=== PATIENT | female | born 2000 | race American Indian/Alaskan Native ===

== ENCOUNTER 2020-05-14 18:42 | Emergency (ER) | payer MEDICAID ==
[2020-05-14 19:33] VITALS: BP 111/60
[2020-05-14 20:10] LABS: Basophils % (Auto) 0.4 % (0.0-1.8); Eosinophils # (Auto) 0.2 K/mm3 (0.0-0.4); Eosinophils % (Auto) 3.9 % (0.0-4.3); Hemoglobin 13.9 gm/dl (10.1-14.3); Lymphocytes # (Auto) 1.9 K/mm3 (1.2-5.4); Lymphocytes % (Auto) 39.4 % (13.4-35.0); Mean Corpuscular HGB Conc 33 % (30-34); Mean Corpuscular Volume 89 fl (79-97); Monocytes # (Auto) 0.4 K/mm3 (0.0-0.8); Monocytes % (Auto) 7.4 % (0.0-7.3); Platelet Count 264 K/mm3 (140-440); Red Blood Count 4.75 M/mm3 (3.65-5.03); Red Cell Distribution Width 13.9 % (13.2-15.2)
[2020-05-14 20:24] LABS: Blood Urea Nitrogen 13 mg/dL (7-17); Calcium 9.2 mg/dL (8.4-10.2); Hemolysis Index 12
[2020-05-14 20:28] LABS: BUN/Creatinine Ratio 19
[2020-05-14 20:39] LABS: Bacteria,Urine 2+ /HPF (Negative); Bilirubin,Urine NEG (Negative); Blood,Urine NEG (Negative); Color,Urine Yellow (Yellow); Mucus,Urine 3+ /HPF; Protein,Urine <15 mg/dL mg/dL (Negative)
--- NOTE | 2020-05-14 21:06 | Emergency Department Report ---
ED General Adult HPI - General Chief complaint: Urogenital-Female Stated complaint: LOW BACK PAIN (POSS PREG) PUI?: No Time Seen by Provider: 05/14/20 20:52 Source: patient Mode of arrival: Ambulatory Limitations: No Limitations - History of Present Illness Initial comments: Ms. Perez is a 20-year-old female with no prior medical history who presents the ED complaining of mid lower back pain for the past couple of weeks. Patient denies any injury or trauma to the back. Patient states that back pain is localized to the mid lower back. Patient denies any radiation elsewhere. Patient also states that she thinks she may be she has not had a menstrual period in 2 years so she is unsure. Patient states that she does have a Nexplanon in her left arm that was placed 2 years ago. Patient also states that she has a history of hemorrhoids that causes her discomfort from time to time. She denies fever/chills/nausea vomiting/vaginal bleed/pelvic pain/dysuria or any other symptoms - Related Data Previous Rx's Medication Instructions Recorded Last Taken Type Docusate Sodium [Colace] 100 mg PO BID PRN #30 capsule 05/14/20 Unknown Rx Hydrocortisone [Anucort-HC SUPPOS] 25 mg RC BID #30 supp.rect 05/14/20 Unknown Rx Allergies Allergy/AdvReac Type Severity Reaction Status Date / Time No Known Allergies Allergy Unverified 05/14/20 19:16 ED Review of Systems ROS: Stated complaint: LOW BACK PAIN (POSS PREG) Other details as noted in HPI Comment: All other systems reviewed and negative ED Past Medical Hx - Past Medical History Previous Medical History?: No Additional medical history: hemorrhoids - Surgical History Past Surgical History?: No - Medications Home Medications: Home Medications Medication Instructions Recorded Confirmed Last Taken Type Docusate Sodium [Colace] 100 mg PO BID PRN #30 capsule 05/14/20 Unknown Rx Hydrocortisone [Anucort-HC SUPPOS] 25 mg RC BID #30 supp.rect 05/14/20 Unknown Rx ED Physical Exam - General Limitations: No Limitations General appearance: alert, in no apparent distress - Head Head exam: Present: atraumatic, normocephalic - Eye Eye exam: Present: normal appearance - ENT ENT exam: Present: mucous membranes moist - Neck Neck exam: Present: normal inspection - Respiratory Respiratory exam: Present: normal lung sounds bilaterally. Absent: respiratory distress - Cardiovascular Cardiovascular Exam: Present: regular rate, normal rhythm. Absent: systolic murmur, diastolic murmur, rubs, gallop - GI/Abdominal GI/Abdominal exam: Present: soft, normal bowel sounds. Absent: distended, tenderness - Extremities Exam Extremities exam: Present: normal inspection, full ROM. Absent: tenderness - Back Exam Back exam: Present: normal inspection, full ROM. Absent: tenderness, CVA te nderness (R), CVA tenderness (L), muscle spasm, paraspinal tenderness - Neurological Exam Neurological exam: Present: alert, oriented X3, normal gait - Psychiatric Psychiatric exam: Present: normal affect, normal mood - Skin Skin exam: Present: warm, dry, intact, normal color. Absent: rash ED Course Vital Signs 05/14/20 05/14/20 19:17 23:42 Temperature 99.6 F Pulse Rate 68 72 Respiratory 16 18 Rate Blood Pressure 111/60 O2 Sat by Pulse 98 97 Oximetry ED Medical Decision Making - Lab Data Result diagrams: 05/14/20 19:54 05/14/20 19:54 Laboratory Last Values WBC 4.9 K/mm3 (4.5-11.0) 05/14/20 19:54 RBC 4.75 M/mm3 (3.65-5.03) 05/14/20 19:54 Hgb 13.9 gm/dl (10.1-14.3) 05/14/20 19:54 Hct 42.0 % (30.3-42.9) 05/14/20 19:54 MCV 89 fl (79-97) 05/14/20 19:54 MCH 29 pg (28-32) 05/14/20 19:54 MCHC 33 % (30-34) 05/14/20 19:54 RDW 13.9 % (13.2-15.2) 05/14/20 19:54 Plt Count 264 K/mm3 (140-440) 05/14/20 19:54 Lymph % (Auto) 39.4 % (13.4-35.0) H 05/14/20 19:54 [place] % (Auto) 7.4 % (0.0-7.3) H 05/14/20 19:54 Eos % (Auto) 3.9 % (0.0-4.3) 05/14/20 19:54 Baso % (Auto) 0.4 % (0.0-1.8) 05/14/20 19:54 Lymph # (Auto) 1.9 K/mm3 (1.2-5.4) 05/14/20 19:54 [place] # (Auto) 0.4 K/mm3 (0.0-0.8) 05/14/20 19:54 Eos # (Auto) 0.2 K/mm3 (0.0-0.4) 05/14/20 19:54 Baso # (Auto) 0.0 K/mm3 (0.0-0.1) 05/14/20 19:54 Seg Neutrophils % 48.9 % (40.0-70.0) 05/14/20 19:54 Seg Neutrophils # 2.4 K/mm3 (1.8-7.7) 05/14/20 19:54 Sodium 138 mmol/L (137-145) 05/14/20 19:54 Potassium 4.1 mmol/L (3.6-5.0) 05/14/20 19:54 Chloride 102.4 mmol/L (98-107) 05/14/20 19:54 Carbon Dioxide 29 mmol/L (22-30) 05/14/20 19:54 Anion Gap 11 mmol/L 05/14/20 19:54 BUN 13 mg/dL (7-17) 05/14/20 19:54 Creatinine 0.7 mg/dL (0.6-1.2) 05/14/20 19:54 Estimated GFR > 60 ml/min 05/14/20 19:54 BUN/Creatinine Ratio 19 % 05/14/20 19:54 Glucose 94 mg/dL (65-100) 05/14/20 19:54 Calcium 9.2 mg/dL (8.4-10.2) 05/14/20 19:54 Urine Color Yellow (Yellow) 05/14/20 Unknown Urine Turbidity Slightly-cloudy (Clear) 05/14/20 Unknown Urine pH 6.0 (5.0-7.0) 05/14/20 Unknown Ur Specific [place] 1.027 (1.003-1.030) 05/14/20 Unknown Urine Protein <15 mg/dl mg/dL (Negative) 05/14/20 Unknown Urine Glucose (UA) Neg mg/dL (Negative) 05/14/20 Unknown Urine Ketones Neg mg/dL (Negative) 05/14/20 Unknown Urine Blood Neg (Negative) 05/14/20 Unknown Urine Nitrite Neg (Negative) 05/14/20 Unknown Urine Bilirubin Neg (Negative) 05/14/20 Unknown Urine Urobilinogen 4.0 mg/dL (<2.0) 05/14/20 Unknown Ur Leukocyte Esterase Neg (Negative) 05/14/20 Unknown Urine WBC (Auto) 2.0 /HPF (0.0-6.0) 05/14/20 Unknown Urine RBC (Auto) 1.0 /HPF (0.0-6.0) 05/14/20 Unknown U Epithel Cells (Auto) 1.0 /HPF (0-13.0) 05/14/20 Unknown Urine Bacteria (Auto) 2+ /HPF (Negative) 05/14/20 Unknown Urine Mucus 3+ /HPF 05/14/20 Unknown Urine HCG, Qual Negative (Negative) 05/14/20 Unknown - Medical Decision Making 20-year-old female presents with hemorrhoids/low back muscle strain All labs are within normal limits no abnormalities seen. Urinalysis negative urine test negative I discussed all findings with the patient. I discussed with patient need to follow-up with her primary care physician. Patient understand instructions and states she will follow-up. Patient had no acute or respiratory distress throughout ED stay. Discussed with patient follow-up with gastroenterology for management of worsening hemorrhoids. Critical care attestation.: If time is entered above; I have spent that time in minutes in the direct care of this critically ill patient, excluding procedure time. ED Disposition Clinical Impression: Hemorrhoids, Strain of muscle, fascia and tendon of lower back, initial encounter Disposition: TO HOME OR SELFCARE Is pt being admited?: No Does the pt Need Aspirin: No Condition: Stable Instructions: Surgical Procedures for Hemorrhoids, Nonsurgical Procedures for Hemorrhoids, Care After, Lumbar Strain Additional Instructions: Make sure to follow up with the primary care physician as discussed. Take all your medications as you've been prescribed. If you have any worsening symptoms or develop new symptoms please return to ED immediately. Prescriptions: Hydrocortisone [Anucort-HC SUPPOS] 25 mg RC BID #30 supp.rect Docusate Sodium [Colace] 100 mg PO BID PRN #30 capsule PRN Reason: Constipation Referrals: [facility] [Provider Group] - 3-5 Days [facility] [Outside] - 3-5 Days [facility] [Outside] - 3-5 Days Forms: Accompanied Note, Work/School Release Form(ED) Time of Disposition: 21:53
[2020-05-14 21:20] LABS: HCG Qualitative,Urine Negative (Negative)
== END 2020-05-14 23:42 | disposition home or self-care (01) ==
LOC: ED 18:42
DX: S39.012A Strain of muscle, fascia and tendon of lower back, initial encounter (principal); K64.9 Unspecified hemorrhoids; Z79.899 Other long term (current) drug therapy; X58.XXXA Exposure to other specified factors, initial encounter; Y93.89 Activity, other specified; Y92.89 Other specified places as the place of occurrence of the external cause; Y99.8 Other external cause status
CPT/HCPCS: 36415; 80048; 81001; 81025; 85025

== ENCOUNTER 2020-10-19 09:51 | Emergency (ER) | payer MEDICAID ==
--- NOTE | 2020-10-19 11:12 | Emergency Department Report ---
ED Female HPI - General Chief complaint: Urogenital-Female Stated complaint: KIDNEY PAINS BACK PAINS Time Seen by Provider: 10/19/20 10:33 Source: patient Mode of arrival: Ambulatory Limitations: No Limitations - History of Present Illness Initial comments: Patient is a 20-year-old female presents emergency room with complaints of a possible UTI. She states that she has had symptoms for a week and reports she has been drinking cranberry juice as she thought that would help her symptoms. She states that she has lower back discomfort, lower abdominal discomfort, urinary frequency, urinary urgency, pressure at the end of urination. She denies any fever, nausea, vomiting, diarrhea, abnormal vaginal discharge. She denies any concerns for STDs. No past medical history. No allergies to medications. She states that she has an Implanon for control - Related Data Previous Rx's Medication Instructions Recorded Last Taken Type Docusate Sodium [Colace] 100 mg PO BID PRN #30 capsule 05/14/20 Unknown Rx Hydrocortisone [Anucort-HC SUPPOS] 25 mg RC BID #30 supp.rect 05/14/20 Unknown Rx cephALEXin [Keflex] 500 mg PO BID 7 Days #14 cap 10/19/20 Unknown Rx Allergies Allergy/AdvReac Type Severity Reaction Status Date / Time No Known Allergies Allergy Verified 10/19/20 10:04 ED Review of Systems ROS: Stated complaint: KIDNEY PAINS BACK PAINS Other details as noted in HPI Comment: All other systems reviewed and negative ED Past Medical Hx - Past Medical History Additional medical history: hemorrhoids - Social History Smoking Status: Never Smoker Substance Use Type: None - Medications Home Medications: Home Medications Medication Instructions Recorded Confirmed Last Taken Type Docusate Sodium [Colace] 100 mg PO BID PRN #30 capsule 05/14/20 Unknown Rx Hydrocortisone [Anucort-HC SUPPOS] 25 mg RC BID #30 supp.rect 05/14/20 Unknown Rx cephALEXin [Keflex] 500 mg PO BID 7 Days #14 cap 10/19/20 Unknown Rx ED Physical Exam - General Limitations: No Limitations General appearance: alert, in no apparent distress - Head Head exam: Present: atraumatic, normocephalic - Eye Eye exam: Present: normal appearance - ENT ENT exam: Present: mucous membranes moist - Respiratory Respiratory exam: Present: normal lung sounds bilaterally. Absent: respiratory distress, wheezes, rales, rhonchi, stridor, chest wall tenderness, accessory muscle use, decreased breath sounds, prolonged expiratory - Cardiovascular Cardiovascular Exam: Present: regular rate, normal rhythm, normal heart sounds. Absent: systolic murmur, diastolic murmur, rubs, gallop - GI/Abdominal GI/Abdominal exam: Present: soft, normal bowel sounds. Absent: distended, tenderness, guarding, rebound, rigid - Back Exam Back exam: Absent: CVA tenderness (R), CVA tenderness (L) - Neurological Exam Neurological exam: Present: alert, oriented X3 - Psychiatric Psychiatric exam: Present: normal affect, normal mood - Skin Skin exam: Present: warm, dry, intact ED Course Vital Signs 10/19/20 10/19/20 09:57 11:52 Temperature 99.5 F Pulse Rate 85 78 Respiratory 16 20 Rate Blood Pressure 107/50 Blood Pressure 120/74 [Left] O2 Sat by Pulse 100 100 Oximetry ED Medical Decision Making - Lab Data Lab Results 10/19/20 Range/Units Unknown Urine Color Yellow (Yellow) Urine Turbidity Turbid (Clear) Urine pH 5.0 (5.0-7.0) Ur Specific [place] 1.017 (1.003-1.030) Urine Protein 100 mg/dl (Negative) mg/dL Urine Glucose (UA) Neg (Negative) mg/dL Urine Ketones Neg (Negative) mg/dL Urine Blood Mod (Negative) Urine Nitrite Neg (Negative) Urine Bilirubin Neg (Negative) Urine Urobilinogen < 2.0 (<2.0) mg/dL Ur Leukocyte Esterase Lg (Negative) Urine WBC (Auto) > 182.0 H (0.0-6.0) /HPF Urine RBC (Auto) 61.0 (0.0-6.0) /HPF U Epithel Cells (Auto) 2.0 (0-13.0) /HPF Urine Bacteria (Auto) 2+ (Negative) /HPF Urine Mucus 1+ /HPF Urine HCG, Qual Negative (Negative) - Medical Decision Making Patient is a 20-year-old female presents emergency room with complaints of a possible UTI. She states that she has had symptoms for a week and reports she has been drinking cranberry juice as she thought that would help her symptoms. She states that she has lower back discomfort, lower abdominal discomfort, urinary frequency, urinary urgency, pressure at the end of urination. She denies any fever, nausea, vomiting, diarrhea, abnormal vaginal discharge. She denies any concerns for STDs. No past medical history. No allergies to medications. She states that she has an Implanon for control. Vitals are normal. No abdominal tenderness or CVA tenderness on exam. UA shows evidence of UTI. Patient given prescription for Keflex. Advised patient Please take medication as prescribed to completion. Increase your fluid intake. Follow-up with a primary care doctor and have your urine retested for clearance of bacteria. Return to emergency room for any new or symptoms. Critical care attestation.: If time is entered above; I have spent that time in minutes in the direct care of this critically ill patient, excluding procedure time. ED Disposition Clinical Impression: UTI (urinary tract infection) Qualifiers: Urinary tract infection type: acute cystitis Hematuria presence: with hematuria Qualified Code(s): N30.01 - Acute cystitis with hematuria Disposition: TO HOME OR SELFCARE Is pt being admited?: No Does the pt Need Aspirin: No Condition: Stable Instructions: Urinary Tract Infection, Adult, [id number] Additional Instructions: Please take medication as prescribed to completion. Increase your fluid intake. Follow-up with a primary care doctor and have your urine retested for clearance of bacteria. Return to emergency room for any new or symptoms. Prescriptions: cephALEXin [Keflex] 500 mg PO BID 7 Days #14 cap Referrals: [facility] [Provider Group] - 3-5 Days MACKENZIE NEELY MD [Staff Physician] - 3-5 Days [facility] [Primary Care Provider] - 3-5 Days Time of Disposition: 11:40 Print Language: CYMRAES
[2020-10-19 11:33] LABS: Bacteria,Urine 2+ /HPF (Negative); Bilirubin,Urine NEG (Negative); Blood,Urine MOD (Negative); Color,Urine Yellow (Yellow); Mucus,Urine 1+ /HPF; Urobilinogen,Urine < 2.0 mg/dL (<2.0)
[2020-10-19 11:34] LABS: WBC,Urine > 182.0 /HPF (0.0-6.0)
[2020-10-19 11:35] LABS: HCG Qualitative,Urine Negative (Negative)
[2020-10-19 11:54] VITALS: BP 120/74
== END 2020-10-19 11:54 | disposition home or self-care (01) ==
LOC: ED 09:51
DX: N39.0 Urinary tract infection, site not specified (principal); Z79.899 Other long term (current) drug therapy
CPT/HCPCS: 81001; 81025

== ENCOUNTER 2021-03-18 08:27 | Emergency (ER) | payer MEDICAID ==
[2021-03-18 08:45] VITALS: BP 126/84
[2021-03-18] MEDS ORDERED: ACETAMINOPHEN 500 MG TAB PO ONE (08:50)
--- NOTE | 2021-03-18 09:26 | Emergency Department Report ---
ED Female HPI - General Chief complaint: Vaginal Bleeding Stated complaint: VAGINAL BLEEDING Time Seen by Provider: 03/18/21 08:31 Source: patient Mode of arrival: Ambulatory Limitations: No Limitations - History of Present Illness Initial comments: This is a 21-year-old female nontoxic, well nourished in appearance, no acute signs of distress presents to the ED with c/o of vaginal bleeding and pelvic cramping x 2 weeks. Denies any upper abdomen pains. Patient denies any vaginal discharge or foul odor. Patient denies any nausea, vomiting, chest pain, shortness of breathe, fever, chills, headache, stiff neck, numbness, tingling. Patient denies any urinary symptoms. Patient denies any allergies or PMH. MD Complaint: vaginal bleeding, pelvic pain -: days(s) Radiation: non-radiating Severity: mild Severity scale (0 -10): 3 Quality: cramping Consistency: intermittent Improves with: none Worsens with: none Associated Symptoms: vaginal bleeding. denies: vaginal discharge, abdominal pain, nausea/vomiting, fever/chills, headaches, loss of appetite, dysuria, hematuria, rash, seizure, shortness of breath, syncope, weakness - Related Data Previous Rx's Medication Instructions Recorded Last Taken Type Docusate Sodium [Colace] 100 mg PO BID PRN #30 capsule 05/14/20 Unknown Rx Hydrocortisone [Anucort-HC SUPPOS] 25 mg RC BID #30 supp.rect 05/14/20 Unknown Rx cephALEXin [Keflex] 500 mg PO BID 7 Days #14 cap 10/19/20 Unknown Rx Naproxen 500 mg PO Q12H PRN #12 tablet 03/18/21 Unknown Rx Allergies Allergy/AdvReac Type Severity Reaction Status Date / Time No Known Allergies Allergy Verified 03/18/21 08:30 ED Review of Systems ROS: Stated complaint: VAGINAL BLEEDING Other details as noted in HPI Comment: All other systems reviewed and negative Constitutional: denies: chills, fever Eyes: denies: eye pain, eye discharge, vision change ENT: denies: ear pain, throat pain Respiratory: denies: cough, shortness of breath, wheezing Cardiovascular: denies: chest pain, palpitations Endocrine: no symptoms reported Gastrointestinal: denies: abdominal pain, nausea, diarrhea Genitourinary: abnormal menses. denies: urgency, dysuria, frequency, hematuria, discharge, dyspareunia Musculoskeletal: denies: back pain, joint swelling, arthralgia Skin: denies: rash, lesions Neurological: denies: headache, weakness, paresthesias Psychiatric: denies: anxiety, depression Hematological/Lymphatic: denies: easy bleeding, easy bruising ED Past Medical Hx - Past Medical History Additional medical history: hemorrhoids - Social History Smoking Status: Never Smoker Substance Use Type: None - Medications Home Medications: Home Medications Medication Instructions Recorded Confirmed Last Taken Type Docusate Sodium [Colace] 100 mg PO BID PRN #30 capsule 05/14/20 03/18/21 Unknown Rx Hydrocortisone [Anucort-HC SUPPOS] 25 mg RC BID #30 supp.rect 05/14/20 03/18/21 Unknown Rx cephALEXin [Keflex] 500 mg PO BID 7 Days #14 cap 10/19/20 03/18/21 Unknown Rx Naproxen 500 mg PO Q12H PRN #12 tablet 03/18/21 Unknown Rx ED Physical Exam - General Limitations: No Limitations General appearance: alert, in no apparent distress - Head Head exam: Present: atraumatic, normocephalic - Eye Eye exam: Present: normal appearance - Neck Neck exam: Present: normal inspection, full ROM. Absent: lymphadenopathy - Respiratory Respiratory exam: Absent: respiratory distress - Cardiovascular Cardiovascular Exam: Present: regular rate - GI/Abdominal GI/Abdominal exam: Present: soft, normal bowel sounds. Absent: distended, te nderness, guarding, rebound, rigid, diminished bowel sounds - Extremities Exam Extremities exam: Present: full ROM - Back Exam Back exam: Present: normal inspection, full ROM. Absent: tenderness, CVA tenderness (R), CVA tenderness (L), muscle spasm, paraspinal tenderness, vertebral tenderness, rash noted - Neurological Exam Neurological exam: Present: alert, oriented X3, normal gait - Psychiatric Psychiatric exam: Present: normal affect, normal mood - Skin Skin exam: Present: warm, dry, intact, normal color. Absent: rash ED Course Vital Signs 03/18/21 03/18/21 08:41 08:45 Temperature 98.2 F Pulse Rate 76 Respiratory 18 Rate Blood Pressure 126/84 [Left] O2 Sat by Pulse 100 100 Oximetry - Reevaluation(s) Reevaluation #1: 03/18/21 09:26 Patient is speaking in full sentences with no signs of distress noted. ED Medical Decision Making - Lab Data Result diagrams: 03/18/21 09:44 03/18/21 09:44 Lab Results 03/18/21 03/18/21 03/18/21 Range/Units 09:37 09:44 09:44 WBC 4.6 (4.5-11.0) K/mm3 RBC 4.83 (3.65-5.03) M/mm3 Hgb 14.2 (10.1-14.3) gm/dl Hct 42.8 (30.3-42.9) % MCV 89 (79-97) fl MCH 29 (28-32) pg MCHC 33 (30-34) % RDW 13.6 (13.2-15.2) % Plt Count 273 (140-440) K/mm3 Lymph % (Auto) 26.5 (13.4-35.0) % [place] % (Auto) 7.2 (0.0-7.3) % Eos % (Auto) 3.0 (0.0-4.3) % Baso % (Auto) Airplane Dispatcher Lymph # (Auto) 1.2 (1.2-5.4) K/mm3 [place] # (Auto) 0.3 (0.0-0.8) K/mm3 Eos # (Auto) 0.1 (0.0-0.4) K/mm3 Baso # (Auto) 0.0 (0.0-0.1) K/mm3 Seg Neutrophils % 62.9 (40.0-70.0) % Seg Neutrophils # 2.9 (1.8-7.7) K/mm3 PT (12.2-14.9) Sec. INR (0.87-1.13) APTT (24.2-36.6) Sec. Sodium 136 L (137-145) mmol/L Potassium 3.6 (3.6-5.0) mmol/L Chloride 99.6 (98-107) mmol/L Carbon Dioxide 24 (22-30) mmol/L Anion Gap 16 mmol/L BUN 10 (7-17) mg/dL Creatinine 0.6 (0.6-1.2) mg/dL Estimated GFR > 60 ml/min BUN/Creatinine Ratio 17 % Glucose 95 (65-100) mg/dL Calcium 9.0 (8.4-10.2) mg/dL Total Bilirubin 0.50 (0.1-1.2) mg/dL AST 17 (5-40) units/L ALT 12 (7-56) units/L Alkaline Phosphatase 57 (35-129) units/L Total Protein 8.6 H (6.3-8.2) g/dL Albumin 4.3 (3.9-5) g/dL Albumin/Globulin Ratio 1.0 % HCG, Qual Negative (Negative) Urine Color (Yellow) Urine Turbidity (Clear) Urine pH (5.0-7.0) Ur Specific [place] (1.003-1.030) Urine Protein (Negative) mg/dL Urine Glucose (UA) (Negative) mg/dL Urine Ketones (Negative) mg/dL Urine Blood (Negative) Urine Nitrite (Negative) Urine Bilirubin (Negative) Urine Urobilinogen (<2.0) mg/dL Ur Leukocyte Esterase (Negative) Urine WBC (Auto) (0.0-6.0) /HPF Urine RBC (Auto) (0.0-6.0) /HPF U Epithel Cells (Auto) (0-13.0) /HPF Urine Mucus /HPF 03/18/21 03/18/21 Range/Units 09:44 Unknown WBC (4.5-11.0) K/mm3 RBC (3.65-5.03) M/mm3 Hgb (10.1-14.3) gm/dl Hct (30.3-42.9) % MCV (79-97) fl MCH (28-32) pg MCHC (30-34) % RDW (13.2-15.2) % Plt Count (140-440) K/mm3 Lymph % (Auto) (13.4-35.0) % [place] % (Auto) (0.0-7.3) % Eos % (Auto) (0.0-4.3) % Baso % (Auto) Lymph # (Auto) (1.2-5.4) K/mm3 [place] # (Auto) (0.0-0.8) K/mm3 Eos # (Auto) (0.0-0.4) K/mm3 Baso # (Auto) (0.0-0.1) K/mm3 Seg Neutrophils % (40.0-70.0) % Seg Neutrophils # (1.8-7.7) K/mm3 PT 13.9 (12.2-14.9) Sec. INR 0.96 (0.87-1.13) APTT 30.5 (24.2-36.6) Sec. Sodium (137-145) mmol/L Potassium (3.6-5.0) mmol/L Chloride (98-107) mmol/L Carbon Dioxide (22-30) mmol/L Anion Gap mmol/L BUN (7-17) mg/dL Creatinine (0.6-1.2) mg/dL Estimated GFR ml/min BUN/Creatinine Ratio % Glucose (65-100) mg/dL Calcium (8.4-10.2) mg/dL Total Bilirubin (0.1-1.2) mg/dL AST (5-40) units/L ALT (7-56) units/L Alkaline Phosphatase (35-129) units/L Total Protein (6.3-8.2) g/dL Albumin (3.9-5) g/dL Albumin/Globulin Ratio % HCG, Qual (Negative) Urine Color Yellow (Yellow) Urine Turbidity Clear (Clear) Urine pH 6.0 (5.0-7.0) Ur Specific [place] 1.020 (1.003-1.030) Urine Protein <15 mg/dl (Negative) mg/dL Urine Glucose (UA) Neg (Negative) mg/dL Urine Ketones Neg (Negative) mg/dL Urine Blood Mod (Negative) Urine Nitrite Neg (Negative) Urine Bilirubin Neg (Negative) Urine Urobilinogen 2.0 (<2.0) mg/dL Ur Leukocyte Esterase Neg (Negative) Urine WBC (Auto) 4.0 (0.0-6.0) /HPF Urine RBC (Auto) 2.0 (0.0-6.0) /HPF U Epithel Cells (Auto) 5.0 (0-13.0) /HPF Urine Mucus 1+ /HPF - Radiology Data [facility] [address] [place] [address] Ultrasound Report Signed Patient: YAKELIN ALLEN MR#: [id number] : 2000 Acct:[id number] Age/Sex: 21 / F ADM Date: 03/18/21 Loc: ED Attending Dr: Ordering Physician: BENSON LAZCANO NP Date of Service: 03/18/21 Procedure(s): US pelvis duplex doppler comp Accession Number(s): [id number] cc: BENSON LAZCANO NP Pelvic ultrasound with Doppler INDICATION: Pelvic pain with bleeding of the vagina TECHNIQUE: Real-time grayscale and Doppler imaging of the pelvis performed. FINDINGS: The uterus measures 8 x 3 x 4 cm. Endometrial thickness is about 2 mm. Both ovaries measure about 2.5 cm in diameter and contain multiple follicles. There is normal Doppler flow involving both ovaries. Minimal free pelvic fluid IMPRESSION: Multiple small follicles within both ovaries. Normal Doppler flow. Minimal free pelvic fluid, probably physiologic. Signer Name: Vincent Blevins MD Signed: 03/18/2021 10:09 AM Workstation Name: [id number] Transcribed By: Dictated By: Vincent Blevins MD Electronically Authenticated By: Vincent Blevins MD Signed Date/Time: 03/18/21 1009 DD/ 1008 TD/TT: [address] [address] Ultrasound Report Signed Patient: YAKELIN ALLEN MR#: [id number] : 2000 Acct:[id number] Age/Sex: 21 / F ADM Date: 03/18/21 Loc: ED At [facility] Dr: Ordering Physician: BENSON LAZCANO NP Date of Service: 03/18/21 Procedure(s): US transvaginal Accession Number(s): [id number] cc: BENSON LAZCANO NP Pelvic ultrasound with Doppler INDICATION: Pelvic pain with bleeding of the vagina TECHNIQUE: Real-time grayscale and Doppler imaging of the pelvis performed. FINDINGS: The uterus measures 8 x 3 x 4 cm. Endometrial thickness is about 2 mm. Both ovaries measure about 2.5 cm in diameter and contain multiple follicles. There is normal Doppler flow involving both ovaries. Minimal free pelvic fluid IMPRESSION: Multiple small follicles within both ovaries. Normal Doppler flow. Minimal free pelvic fluid, probably physiologic. Signer Name: Vincent Blevins MD Signed: 03/18/2021 10:09 AM Workstation Name: [id number] Transcribed By: Dictated By: Vincent Blevins MD Electronically Authenticated By: Vinecnt Blevins MD Signed Date/Time: 03/18/21 1009 DD/ 1008 TD/TT: - Medical Decision Making This is a 21-year-old female presents with dysmenorrhea. Patient is stable and was examined by me. Normal abdominal exam. US obtained and dictated by the radiologist. Ua obtained. Patient notified of the US report with no questions noted by the patient. Patient was instructed f/u with [facility] in 3-5 days. Labs within normal limits. Patient stated after given Tylenol symptoms of pelvic cramping has resolved. At time of discharge, the patient does not seem toxic or ill in appearance. No acute signs of distress noted. Patient agrees to discharge treatment plan of care. No further questions noted by the patient. Critical care attestation.: If time is entered above; I have spent that time in minutes in the direct care of this critically ill patient, excluding procedure time. ED Disposition Clinical Impression: Dysmenorrhea, Abnormal menstrual cycle Disposition: HOME / SELF CARE / HOMELESS Is pt being admited?: No Does the pt Need Aspirin: No Condition: Stable Instructions: Dysmenorrhea, [id number] Additional Instructions: Follow-up with a [facility] doctor in 3-5 days or if symptoms worsen and continue return to emergency room as soon as possible. Prescriptions: Naproxen 500 mg PO Q12H PRN #12 tablet PRN Reason: Pain , Severe (7-10) Referrals: PRIMARY CARE, [Primary Care Provider] - 3-5 Days [facility] [Provider Group] - 3-5 Days [facility] [Provider Group] - 3-5 Days Forms: Work/School Release Form(ED) Time of Disposition: 10:42
--- NOTE | 2021-03-18 10:13 | Ultrasound Report ---
Pelvic ultrasound with Doppler INDICATION: Pelvic pain with bleeding of the vagina TECHNIQUE: Real-time grayscale and Doppler imaging of the pelvis performed. FINDINGS: The uterus measures 8 x 3 x 4 cm. Endometrial thickness is about 2 mm. Both ovaries measure about 2.5 cm in diameter and contain multiple follicles. There is normal Doppler flow involving both ovaries. Minimal free pelvic fluid IMPRESSION: Multiple small follicles within both ovaries. Normal Doppler flow. Minimal free pelvic fl uid, probably physiologic. Signer Name: Vincent Blevins MD Signed: 03/18/2021 10:09 AM Workstation Name: [id number]
[2021-03-18 10:17] LABS: Eosinophils # (Auto) 0.1 K/mm3 (0.0-0.4); Hematocrit 42.8 % (30.3-42.9); Hemoglobin 14.2 gm/dl (10.1-14.3); Lymphocytes # (Auto) 1.2 K/mm3 (1.2-5.4); Lymphocytes % (Auto) 26.5 % (13.4-35.0); Mean Corpuscular HGB Conc 33 % (30-34); Mean Corpuscular Volume 89 fl (79-97); Monocytes # (Auto) 0.3 K/mm3 (0.0-0.8); Monocytes % (Auto) 7.2 % (0.0-7.3); Platelet Count 273 K/mm3 (140-440); Red Blood Count 4.83 M/mm3 (3.65-5.03); Red Cell Distribution Width 13.6 % (13.2-15.2)
[2021-03-18 10:19] LABS: INR 0.96 (0.87-1.13)
[2021-03-18 10:20] LABS: Partial Thromboplastin Time 30.5 Sec. (24.2-36.6)
[2021-03-18 10:26] LABS: Bilirubin,Urine NEG (Negative); Blood,Urine MOD (Negative); Color,Urine Yellow (Yellow); Mucus,Urine 1+ /HPF; Protein,Urine <15 mg/dL mg/dL (Negative)
[2021-03-18 10:30] LABS: Alanine Aminotransferase 12 units/L (7-56); Albumin 4.3 g/dL (3.9-5); BUN/Creatinine Ratio 17; Blood Urea Nitrogen 10 mg/dL (7-17); Hemolysis Index 4
== END 2021-03-18 10:48 | disposition home or self-care (01) ==
LOC: ED 08:27
DX: N94.6 Dysmenorrhea, unspecified (principal); R79.1 Abnormal coagulation profile
CPT/HCPCS: 36415; 76830; 80053; 81001; 84703; 85025; 85610; 85730; 93975; 99284